=== PATIENT | male | born 1965 | race Caucasian/White ===

== ENCOUNTER 2023-09-21 08:17 | Day surgery (SDC) | payer OTHER ==
[~2023-09-21] VITALS: Ht 177.8 cm; Wt 70.3 kg
[2023-09-21] MEDS ORDERED: LIDOCAINE 2% 100 MG/5 ML UJET TP ONE (09:45)
[2023-09-21] MEDS ORDERED: fentaNYL citrate 0.05 MG/ML VIAL ONE (09:45)
[2023-09-21] MEDS ORDERED: MIDAZOLAM 2 MG/2 ML VIAL ONE ×2 (10:07→10:08)
[2023-09-21] MEDS ORDERED: fentaNYL citrate 0.05 MG/ML VIAL IVP ONE (12:25)
[2023-09-21] MEDS ORDERED: MIDAZOLAM 2 MG/2 ML VIAL IVP ONE (12:25)
== END 2023-09-21 10:54 | disposition home or self-care (01) ==
LOC: MDS 08:17 → MMU 08:17 → MDS 10:54
PROVIDERS: ATTEND Internal Medicine Gastroenterology
DX: R19.5 Other fecal abnormalities (principal); K64.8 Other hemorrhoids; K57.30 Diverticulosis of large intestine without perforation or abscess without bleeding; D50.0 Iron deficiency anemia secondary to blood loss (chronic); K21.9 Gastro-esophageal reflux disease without esophagitis; I10 Essential (primary) hypertension; J45.909 Unspecified asthma, uncomplicated; F32.A Depression, unspecified; F41.9 Anxiety disorder, unspecified; Z79.899 Other long term (current) drug therapy
CPT/HCPCS: J2250; J3010

== ENCOUNTER 2024-06-30 10:26 | Day surgery (SDC) | payer OTHER ==
[~2024-06-30] VITALS: Ht 177.8 cm; Wt 74.8 kg
[2024-06-30] MEDS ORDERED: fentaNYL citrate 0.05 MG/ML VIAL ONE (11:46)
[2024-06-30] MEDS ORDERED: MIDAZOLAM 5 MG/5 ML VIAL ONE (11:46)
[2024-06-30] MEDS: MIDAZOLAM 2 MG/2 ML VIAL IVP ONE (12:10)
== END 2024-06-30 14:25 | disposition home or self-care (01) ==
LOC: MMU 10:26 → MDS 10:26
PROVIDERS: ATTEND Internal Medicine Gastroenterology
DX: R10.13 Epigastric pain (principal); K21.9 Gastro-esophageal reflux disease without esophagitis; D64.9 Anemia, unspecified; K44.9 Diaphragmatic hernia without obstruction or gangrene; K22.2 Esophageal obstruction; J45.909 Unspecified asthma, uncomplicated; F32.A Depression, unspecified; F41.9 Anxiety disorder, unspecified; Z98.890 Other specified postprocedural states
CPT/HCPCS: 36415; 43239; 43245; 86677; 88305; 88312; 88313; 88342; J2250; 43248; J3010